=== PATIENT | male | born 1985 | race Hispanic/Latino ===

== ENCOUNTER 2019-05-28 11:02 | Outpatient (CLI) | payer BC ==
--- NOTE | 2019-05-28 11:55 | ULT ---
Scrotal ultrasound: 05/28/2019 COMPARISON: None HISTORY: Right scrotal swelling TECHNIQUE: Multiplanar grayscale sonographic imaging of the scrotal contents with Doppler interrogati on of the testicles obtained. FINDINGS: There are prominent vascular structures adjacent to bilateral testicles posteriorly. The testicles demonstrate normal symmetric blood flow. There is a tiny cyst within the right epididymis measuring 3 mm. Left epididymis is unremarkable. Incidental note is made of a 3-4 mm calcification within the left testicle. No intratesticular mass l esion noted on either side. With Valsalva, vascular structures adjacent to the left testicle measure up to 3-4 mm. Vascular struc tures adjacent to the right testicle measure up to 3 mm as well. Right testicle measures 3.8 x 5.0 x 2.5 cm and left testicle measures 4.0 x 5.0 x 3.0 cm per IMPRESSION: Findings suggesting small bilateral varicoceles. No acute findings. No intratesticular ma ss lesion. Transcribed Date/Time: 05/28/2019 1:13 PM
== END 2019-05-28 11:03 | disposition home or self-care (01) ==
LOC: SCSULT 11:02
PROVIDERS: ATTEND Family Medicine
DX: N50.89 Other specified disorders of the male genital organs (principal)
CPT/HCPCS: 76870; 93976